=== PATIENT | female | born 1995 | race African-American/Black ===

== ENCOUNTER 2021-05-20 22:27 | Emergency (ER) | payer MEDICAID ==
[~2021-05-20] VITALS: Ht 160 cm; Wt 90.7 kg
[2021-05-20 22:50] VITALS: BP 122/85
== END 2021-05-20 23:58 | disposition left against medical advice (07) ==
LOC: ER 22:27
DX: L02.31 Cutaneous abscess of buttock (principal); Z53.21 Procedure and treatment not carried out due to patient leaving prior to being seen by health care provider